=== PATIENT | female | born 1950 | race Caucasian/White ===

== ENCOUNTER → 2017-02-27 | Outpatient (CLI) | payer MEDICARE, OTHER | LOC: MC.RAD 13:00 | DX: N60.01 Solitary cyst of right breast (principal); N63 Unspecified lump in breast; N60.41 Mammary duct ectasia of right breast ==

== ENCOUNTER → 2019-02-01 | Outpatient (CLI) | payer MEDICARE, OTHER | LOC: MC.RAD 10:11 | DX: Z12.31 Encounter for screening mammogram for malignant neoplasm of breast (principal) ==

== ENCOUNTER → 2020-06-29 | Outpatient (CLI) | payer MEDICARE, OTHER | LOC: MC.RAD 08:03 | DX: Z12.31 Encounter for screening mammogram for malignant neoplasm of breast (principal) ==

== ENCOUNTER 2020-07-22 19:46 | Emergency (ER) | payer MEDICARE, OTHER ==
[~2020-07-22] VITALS: Ht 157.5 cm; Wt 102.3 kg
[2020-07-22 19:49] VITALS: TEMP 99.6
[2020-07-22] MEDS ORDERED: PREDNISONE20 MG PO (20:20)
[2020-07-22 21:00] VITALS: BP 155/64; PULSE 70
== END 2020-07-22 21:00 | disposition home or self-care (01) ==
LOC: COL.ER 19:46
DX: L50.0 Allergic urticaria (principal)
CPT/HCPCS: J2930

== ENCOUNTER → 2022-07-31 | Outpatient (CLI) | payer MEDICARE, OTHER ==
[~2022-07-31] MED LIST: PREDNISONE20 MG PO
== END ==
LOC: MC.RAD 13:14
DX: Z12.31 Encounter for screening mammogram for malignant neoplasm of breast (principal)

== ENCOUNTER → 2023-10-09 | Outpatient (CLI) | payer MEDICARE, OTHER | LOC: CANSCHCLI → MC.RAD 08:16 | DX: Z12.31 Encounter for screening mammogram for malignant neoplasm of breast (principal) ==